=== PATIENT | female | born 1985 | race American Indian/Alaskan Native ===

== ENCOUNTER 2018-12-30 12:56 | Emergency (ER) | payer OTHER ==
[2018-12-30 13:03] VITALS: BP 158/107
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
[2018-12-30] MEDS ORDERED: TYLENOL PO ONE (15:10)
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
[2018-12-30 16:01] LABS: HCG Qualitative,Urine Negative (Negative)
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
== END 2018-12-30 17:16 | disposition home or self-care (01) ==
LOC: ED 12:56
DX: M54.6 Pain in thoracic spine (principal); E78.00 Pure hypercholesterolemia, unspecified; V49.49XA Driver injured in collision with other motor vehicles in traffic accident, initial encounter; Y93.89 Activity, other specified; Y92.488 Other paved roadways as the place of occurrence of the external cause; Y99.8 Other external cause status
CPT/HCPCS: 71046; 72072; 81025; 99283